=== PATIENT | female | born 1980 | race Caucasian/White ===

== ENCOUNTER 2017-09-05 13:42 | Emergency (ER) | payer OTHER ==
[~2017-09-05] VITALS: Ht 167.6 cm; Wt 157.1 kg
[~2017-09-05 13:42] MED LIST: FLONASE16 G1 BOTH NARES; TOPAMAX100 MG PO; VYVANSE PO
[2017-09-05] MEDS ORDERED: MOTRIN600 MG PO (17:14)
[2017-09-05] MEDS ORDERED: ULTRAM50 MG PO (17:14)
[2017-09-05 17:54] VITALS: BP 145/94
== END 2017-09-05 18:36 | disposition home or self-care (01) ==
LOC: EME 13:42
DX: S86.111A Strain of other muscle(s) and tendon(s) of posterior muscle group at lower leg level, right leg, initial encounter (principal); Y93.01 Activity, walking, marching and hiking; G89.29 Other chronic pain; Z88.0 Allergy status to penicillin
CPT/HCPCS: 73564; 93971; 99281; 99283

== ENCOUNTER 2017-10-29 11:03 | Day surgery (SDC) | payer OTHER ==
[~2017-10-29] VITALS: Ht 167.6 cm; Wt 154.2 kg
[~2017-10-29 11:03] MED LIST changes: +LAMICTAL200 MG PO; +MOTRIN600 MG PO; +ULTRAM50 MG PO; +VYVANSE50 MG PO
[2017-10-29 11:34] VITALS: BP 151/70
[2017-10-29 15:45] VITALS: BP 136/67
[2017-10-29 16:40] VITALS: BP 148/77
== END 2017-10-29 16:45 | disposition home or self-care (01) ==
LOC: SDC 11:03
DX: S83.241A Other tear of medial meniscus, current injury, right knee, initial encounter (principal); M94.261 Chondromalacia, right knee; E66.01 Morbid (severe) obesity due to excess calories; Z68.43 Body mass index [BMI] 50.0-59.9, adult; Z82.49 Family history of ischemic heart disease and other diseases of the circulatory system; F90.9 Attention-deficit hyperactivity disorder, unspecified type; Z88.0 Allergy status to penicillin
CPT/HCPCS: J0131; J0171; J0330; J0690; J1100; J1170; J1885; J2250; J3010; Q0175